=== PATIENT | female | born 1950 | race Caucasian/White ===

== ENCOUNTER 2024-05-30 07:40 | Day surgery (SDC) | payer MEDICARE ==
[2024-05-30] MEDS: Sodium Chloride 0.9% 1,000 ML IV SCH (08:00)
[2024-05-30] MEDS ORDERED: fentaNYL 50 MCG/ML SDV ONE (08:17)
[2024-05-30] MEDS ORDERED: Propofol 200 MG/20 ML SDV ONE (08:17)
[2024-05-30 10:42] VITALS: PULSE 49
[2024-05-30 10:54] VITALS: BP 106/67
== END 2024-05-30 11:02 | disposition home or self-care (01) ==
LOC: JP.SDS 07:40
PROVIDERS: ATTEND Surgery
DX: Z12.11 Encounter for screening for malignant neoplasm of colon (principal); J44.9 Chronic obstructive pulmonary disease, unspecified; E11.9 Type 2 diabetes mellitus without complications; F17.200 Nicotine dependence, unspecified, uncomplicated
CPT/HCPCS: 00812-QZ; J2704; J3010; J7030

== ENCOUNTER 2025-07-18 07:33 | Day surgery (SDC) | payer MEDICARE ==
[2025-07-18] MEDS ORDERED: fentaNYL 50 MCG/ML SDV ONE (08:03)
[2025-07-18] MEDS ORDERED: Propofol 200 MG/20 ML SDV ONE (08:03)
[2025-07-18] MEDS: Lactated Ringers 1,000 ML IV SCH (08:32)
[2025-07-18 11:35] VITALS: BP 143/72; PULSE 58
== END 2025-07-18 11:37 | disposition home or self-care (01) ==
LOC: JP.SDS 07:33
PROVIDERS: ATTEND Surgery
DX: Z12.11 Encounter for screening for malignant neoplasm of colon (principal); F32.A Depression, unspecified; F41.9 Anxiety disorder, unspecified; E03.9 Hypothyroidism, unspecified; Z88.8 Allergy status to other drugs, medicaments and biological substances; Z88.5 Allergy status to narcotic agent; F17.210 Nicotine dependence, cigarettes, uncomplicated; Z86.0100 Personal history of colon polyps, unspecified; Z79.890 Hormone replacement therapy; Z79.899 Other long term (current) drug therapy
CPT/HCPCS: 00812; 71271; G0121; J2704; J3010; J7120